=== PATIENT | female | born 1990 | race Caucasian/White ===

== ENCOUNTER 2019-11-19 11:38 | Inpatient (IN) | payer OTHER, SELFPAY ==
[~2019-11-19 11:38] MED LIST: Bupivacaine HCl 0.5%/Epinephrine 1:200,000/PF 30 ml Vial ONE; Bupivacaine/Epinephrine 0.25% 30 ML VIAL ONE; EPHEDRINE 25 MG/5 ML SYRINGE ONE
[2019-11-19] MEDS ORDERED: hydrALAZINE 20 MG/ML VIAL SLOW IVP PRN (11:43)
--- NOTE | 2019-11-19 12:01 | PDOC.FPROB ---
FMR OB H&P: HPI - History of Present Illness Chief Complaint: elevated BP and non reactive NST Indentification: 38.5 wga dated by LMP c/w 7.1 wk sono History of Present Illness: 28 y/o 38.5 wga dated by LMP c/w 7.1, with a pmhx of Bipolar 1 d/o, obesity, and NAFLD, presents to L&D from [facility] with elevated BP readings 150/99 -130/86. Pt reports taking BP's at home and ranging from 115-130/70-80's. reports good movements. Denies LOF, vag bleeding/discharge. states she has been having random mauricio aguirre and associated with pelvic pain. Denies abd pain in RUQ or anywhere else, OLSEN, or swelling. Pt admits to having lights in her vision X2 days ago that went away spontaneous and was associated with some LH with standing abruptly. Primary Care Physician: [facility] FMR OB H&P: Current - Care : 1 Para: 0 Gestational age: 38.5 Dating Criteria: LMP c/w 7.1 wk sono Course/Complications: obesity lithium use in 1T, hx of bipolar d/o elevated LFT's in - OB Labs Blood type: A RH: positive Antibody Screen: negative HIV: negative RPR: negative HepBsAg: negative Rubella: immune Gonorrhea: negative Chlamydia: negative 1 hour gtt: 130 A1c: 5.1% GBS: positive - First Trimester Ultrasound First trimester: dating 7.1 wk sono FMR OB H&P: History - Past Medical History PMH: Bipolar 1 d/o Obestiy Thyroid disorder off meds for 1 year. - OB History OB History: pt plans to have open adoption of baby with family friends. Nonreactive NST today. Receiving weekly BPP: obesity, transaminitis, boarderline AMENA - Surgical History Sx History: wisdom teeth removal - Social History Social History: Pt agreed to adopt in open adoption. Denies current etoh, drug or tobacco use. Prior tobacco use about 10 cigs daily before Lives at home with parents - Family History Family History: noncontributory FMR OB H&P: ROS - Review of Systems General: denies: fever/chills, night sweats, fatigue Eyes: denies: eye pain, double vision, scotomas ENT: denies: nasal congestion, sore throat Cardiovascular: denies: chest pain, palpitation, edema Respiratory: denies: cough, congestion, shortness of breath Gastrointestinal: denies: abdominal pain, nausea, vomiting, diarrhea Genitourinary (Female): reports: contractions (random). denies: incontinence, dysuria, hematuria, vaginal discharge, vaginal pain, vaginal bleeding, vaginal mass/sore, vaginal pressure Musculoskeletal: denies: pain, stiffness, swelling Neurologic: denies: numbness, syncope, seizures, weakness Integumentary: denies: itching Endocrine: reports: polyuria. denies: polydipsia Hematologic/Lymphatic: denies: prolonged or excessive bleeding, enlarged lymph nodes Psychological: reports: other (manic episode about 1 year ago, Bipolar reported per pt as stable.) FMR OB H&P: Vital Signs - Maternal Vital signs: BP 134/89 HR 88 98% O2 sat 20 RR - Heart Tones Baseline: 135 Variability: moderate Acceleration: absent Deceleration: absent [place] contractions every: random, irregular FMR OB H&P: Physical Exam - Physical Exam General: NAD, awake, alert and oriented HEENT: normocephalic and atraumatic, PERRLA, EOMI, MMM, conjunctiva clear, no scleral icterus, grossly normal vision, grossly normal hearing Neck: supple, FROM, trachea midline, no JVD Chest: non-tender to palpation Breast: symmetric Heart: RRR, normal S1/S2, no murmurs/rubs/gallops, pulses present, no edema General: CTAB, no respiratory distress, good air movement, no rales/rhonchi, no wheezing, no retractions Abdomen: soft, gravid, non-tender, bowel sound present Musculoskeletal: normal gait and station, pulses present, FROM in all four extremities, no misalignment/asymmetry, no atrophy Neurological: sensation to pain,touch and proprioception grossly normal, DTR +2 , no clonus, no tremor, no focal deficit Skin: no rash, good tugor, capillary refill <2 seconds, no jaundice Lymphatic: no unusual bruising or bleeding, no purpura, no petechia Psychiatric: intact recent and remote memory, good judgement and insight, normal mood and affect FMR OB H&P: A/P - Problem List (1) Elevated BP without diagnosis of hypertension Current Visit: Yes Status: Acute Code(s): R03.0 - ELEVATED BLOOD-PRESSURE READING, W/O DIAGNOSIS OF HTN (2) Term Current Visit: Yes Status: Acute Code(s): Z34.90 - ENCNTR FOR SUPRVSN OF NORMAL , UNSP, UNSP TRIMESTER (3) Non-reactive NST (non-stress test) Current Visit: Yes Status: Acute Code(s): O28.8 - OTHER ABNORMAL FINDINGS ON SCREENING OF MOTHER (4) Bipolar 1 disorder Current Visit: Yes Status: Acute Code(s): F31.9 - BIPOLAR DISORDER, UNSPECIFIED (5) Obesity Current Visit: Yes Status: Acute Code(s): E66.9 - OBESITY, UNSPECIFIED Discussion: Date/Time: 11/19/19 1153 28 y/o @ 38.5 wks dated by LMP c/w 9.6 wk sono. Here today for non- reactive NST and elevated BP's in office 150/99. 1. sIUP @ 38.5 wks - NST ordered - nonreactive NST @ [facility] earlier today. - BPP ordered - TOCO And FHT monitoring. - FHT 135 baseline with mod variability, no accels present 2. Elevated BP's, Pre-E rule out - CBC, CMP, Urine pro/Cr ratio - BP Q15 min 3. GBS + 4. Hx of asthma 5. hx of transaminitis 2/2 NAFLD due to glucose intolerance and metabolic syndrome. - CMP ordered 6. Hx of thyroid disease - has been off meds for X1 year - TSH 1.54 7. Hx of Bipolar d/o - use of lithium in 1T This H&P was discussed with Dr. Frederick and Dr. Felton who agree with the above documentation and plan.
[2019-11-19 12:11] LABS: #Eosinphils 0.1 thou/uL (0.0-0.7); #Monocytes 0.6 thou/uL (0.11-0.59); #Neutrophils 6.7 thou/uL (1.40-6.50); %Basophils 0.4 % (0.0-1.0); %Eosinophils 1.4 % (0.0-10.0); %Lymphocytes 21.6 % (21.0-51.0); %Monocytes 5.9 % (0.0-10.0); %Neutrophils 70.7 % (42.0-75.0); Hemoglobin 13.7 g/dL (12.0-16.0); Mean Corpuscular HGB CONC 33.6 g/dL (32.0-36.0); Mean Corpuscular Hemoglobin 26.2 pg (27.0-31.0); Mean Corpuscular Volume 77.9 fL (78.0-98.0); Mean Platelet Volume 8.4 fL (7.4-10.4); Platelet Count 325 thou/uL (130-400); RBC Distribution Width 14.6 % (11.5-14.5); Red Blood Cell (RBC) Count 5.22 mill/uL (4.20-5.40); White Blood Cell (WBC) Count 9.4 thou/uL (4.8-10.8)
[2019-11-19 12:44] LABS: ALT (SGPT) 63 U/L (8-55); AST (SGOT) 26 U/L (5-34); Albumin 3.4 g/dL (3.5-5.0); Alkaline Phosphatase 269 U/L (40-110); Anion Gap 15 mmol/L (10-20); BUN (Urea Nitrogen) 8 mg/dL (7.0-18.7); Bilirubin, Total 0.5 mg/dL (0.2-1.2); Calc. Creatinine Clearance 0 mL/min (70-130); Calcium 10.3 mg/dL (7.8-10.44); Carbon Dioxide 20 mmol/L (22-29); Chloride 104 mmol/L (98-107); Estimated GFR-MDRD Greater than 90; Glucose 104 mg/dL (70-105); Potassium 4.2 mmol/L (3.5-5.1); Protein, Total 7.4 g/dL (6.0-8.3); Sodium 135 mmol/L (136-145)
[2019-11-19] MEDS ORDERED: NS / Oxytocin 40 units/1000ml 1,000 ML IV PRN (13:16)
[2019-11-19] MEDS ORDERED: Butorphanol Tartrate 1 MG/ML VIAL SLOW IVP PRN (13:16)
[2019-11-19] MEDS ORDERED: Promethazine HCl 25 MG/ML VIAL IM PRN (13:16)
[2019-11-19] MEDS ORDERED: Ondansetron PF 4 MG/2 ML Vial IVP PRN (13:16)
[2019-11-19] MEDS ORDERED: Lidocaine 1% (PF) 30 ML VIAL SC PRN (13:16)
[2019-11-19] MEDS ORDERED: Ibuprofen 800 MG TAB PO PRN (13:16)
[2019-11-19] MEDS ORDERED: NS w/ Oxytocin 10 units 500 ML IV SCH (13:30)
[2019-11-19] MEDS ORDERED: Penicillin G Potassium 5 MILL.UNITS in Sodium Chloride 0.9% 100 ML IVPB SCH (13:30)
--- NOTE | 2019-11-19 13:44 | PDOC.BPN ---
- Brief Progress Note BPP 6/10 Non-reactive strip. FHT baseline 135 with mod variability. No 15X15 acels present on monitoring so far. Oiligohydramnios on sono AMENA: 0 admitting for medical IOL for oligohydramnios Amnisure ordered. Will determine pit vs cytotec after determining if ruptured or not, and BOOKER score. Plan discussed with Dr. Frederick and Dr. Felton who are in agreement with above plan.
[2019-11-19 13:57] LABS: Creatinine, Urine 22.66 mg/dL (47-110); Protein, Urine Random Quant Less than 10 mg/dL (1-14)
[2019-11-19] MEDS: Lactated Ringer's 1,000 ML IV SCH (14:00)
--- NOTE | 2019-11-19 14:10 | PDOC.BPN ---
- Brief Progress Note Correction: 38.5 weeks dated by LMP c/w 9.6 wk robert
[2019-11-19 14:11] VITALS: BMI 45.7
[2019-11-19 14:11] LABS: Hemoglobin 13.3 g/dL (12.0-16.0); Mean Corpuscular HGB CONC 33.7 g/dL (32.0-36.0); Mean Corpuscular Hemoglobin 26.1 pg (27.0-31.0); Mean Corpuscular Volume 77.5 fL (78.0-98.0); Mean Platelet Volume 8.4 fL (7.4-10.4); Platelet Count 313 thou/uL (130-400); RBC Distribution Width 14.5 % (11.5-14.5); Red Blood Cell (RBC) Count 5.11 mill/uL (4.20-5.40); White Blood Cell (WBC) Count 9.9 thou/uL (4.8-10.8)
[2019-11-19 14:17] LABS: Amnisure Internal Control QC ACCEPTABLE (ACCEPTABLE); Amnisure Test No Membranes Rupture (No Rupture)
[2019-11-19 14:18] LABS: HBSAg Index 0.13 S/CO (0-0.99); Hep B Surf Ag Non-Reactive S/CO (NonReactive); Syphilis Antibody Nonreactive (Nonreactive); Syphilis Antibody Index 0.02 S/CO (<1.00 Non-Reactive)
[2019-11-19] MEDS: Misoprostol 100 MCG TAB VAG SCH ×3 (14:56→21:45)
[2019-11-19] MEDS ORDERED: Lactated Ringer's 1,000 ML IV SCH (15:00)
--- NOTE | 2019-11-19 15:01 | PDOC.LDPN ---
Labor & Delivery Progress Note - Subjective Subjective: comfortable, vaginal pressure, no concerns - Objective Vital signs reviewed and normal: yes General: NAD, resting, breathing through contractions Uterine fundus: non tender SVE: Dr. Martinez @ 1450, /-2 Dilation: 1 Effacement: 50% Station: -2 FHT: category 1 (mod variability, no decels, acels 10X10 present ), variability present Nina contractions every: 3-5 min Other exam findings: amnisure negative - Assessment (1) Elevated BP without diagnosis of hypertension Code(s): R03.0 - ELEVATED BLOOD-PRESSURE READING, W/O DIAGNOSIS OF HTN Current Visit: Yes Status: Acute (2) Term Code(s): Z34.90 - ENCNTR FOR SUPRVSN OF NORMAL , UNSP, UNSP TRIMESTER Current Visit: Yes Status: Acute (3) Non-reactive NST (non-stress test) Code(s): O28.8 - OTHER ABNORMAL FINDINGS ON SCREENING OF MOTHER Current Visit: Yes Status: Acute (4) Bipolar 1 disorder Code(s): F31.9 - BIPOLAR DISORDER, UNSPECIFIED Current Visit: Yes Status: Acute (5) Obesity Code(s): E66.9 - OBESITY, UNSPECIFIED Current Visit: Yes Status: Acute Plan: continue plan of care -: 28 y/o @ 38.5 wks dated by LMP c/w 9.6 wk sono. Here today for non- reactive NST and elevated BP's in office 150/99. 1. sIUP @ 38.5 wks, medical induction for Oligohydramnios - nonreactive NST @ [facility] earlier today. - BPP 6/10. AMENA 0, nonreactive NST. - continuous TOCO And FHT monitoring. - FHT 135 baseline with mod variability, 10X10 acels present, with a 15X15 on strip since admission. No decels. Gave 1 liter LR bolus. - SVE @ 1450: /-2, cytotec placed. BOOKER score 5. Ctx 3-5 min. FHT's reassuring and starting to show accelerations. - Recheck SVE in 3 hours. 2. Oligohydramnios - AMENA 0. Amnisure negative. No leaking of fluids or suspicion of ROM per H&P. - pt had mBPP on Saturday this week and had borderline AMENA, receiving repeat BPP' s. 3. Elevated BP's, Pre-E rule out - CBC, CMP, Urine pro/Cr ratio - BP Q15 min 4. GBS + - PCN prophylaxis 5. Hx of asthma 6. hx of transaminitis 2/2 NAFLD due to glucose intolerance and metabolic syndrome. - AST and ALT improved since previous labs. 7. Hx of thyroid disease - has been off meds for X1 year - TSH 1.54 8. Hx of Bipolar d/o - use of lithium in 1T Plan discussed with Dr. Ferderick and Dr. Felton, who are in agreement with the above plan.
--- NOTE | 2019-11-19 15:10 | ULT ---
BIOPHYSICAL PROFILE: 11/19/19 INDICATIONS: testing. movement: Score 2 tone: Score 2 breathing: Score 2 Amniotic fluid volume: Score 0 Total score: 6/8 AMENA is recorded at 0. Presentation: Vertex. Placenta: Anterior. heart rate: 132 beats per minute. IMPRESSION: 1. Biophysical profile of 6. 2. Severe oligohydramnios. POS: AGW
--- NOTE | 2019-11-19 19:23 | PDOC.LDPN ---
Labor & Delivery Progress Note - Subjective Subjective: comfortable - Objective Vital signs reviewed and normal: yes General: NAD, resting SVE: 2/50/-2 Dilation: 2 Effacement: 50% Station: -2 FHT: category 1 [place] contractions every: Occasional - Assessment (1) Term Code(s): Z34.90 - ENCNTR FOR SUPRVSN OF NORMAL , UNSP, UNSP TRIMESTER Current Visit: Yes Status: Acute -: 28 y/o @ 38.5 wks dated by LMP c/w 9.6 wk sono. Here today for non- reactive NST and elevated BP's in office 150/99. 1. sIUP @ 38.5 wks, medical induction for Oligohydramnios Nonreactive NST @ [facility] earlier today. * BPP 11/17. AMENA 0, nonreactive NST. * Continuous TOCO And FHT monitoring. * FHT 135 baseline with mod variability, 10X10 acels present, with a 15X15 on strip since admission. No decels. S/p 1 liter LR bolus. * SVE * 11/18 1450: 1/50/-2, cytotec placed. BOOKER score 5. Ctx 3-5 min. FHT's reassuring and starting to show accelerations. * 11/18 1830: 2/50/-2, Cytotec placed * Recheck SVE in 3 hours. 2. Oligohydramnios AMENA 0. Amnisure negative. No leaking of fluids or suspicion of ROM per H&P. * Pt had mBPP on Saturday this week and had borderline AMENA, receiving repeat BPP' s. 3. Elevated BP's, Pre-E rule out * P/C Neg * CBC shows normal plts, CMP shows elevated ALT, AST normal * BP Q15 min 4. GBS + * PCN prophylaxis 5. Hx of asthma 6. hx of transaminitis 2/2 NAFLD due to glucose intolerance and metabolic syndrome. * AST and ALT improved since previous labs. 7. Hx of thyroid disease Has been off meds for X1 year * TSH 1.54 8. Hx of Bipolar d/o Use of lithium in 1T Plan discussed with Dr. Frederick and Dr. Marroquin, who are in agreement with the above plan.
--- NOTE | 2019-11-20 01:46 | PDOC.LDPN ---
Labor & Delivery Progress Note - Subjective Subjective: comfortable, other (reports some increased cramping pain) - Objective Vital signs reviewed and normal: yes General: NAD, resting Uterine fundus: non tender SVE: 22:30 Dilation: 1.5 Effacement: 75% Station: -2 FHT: category 1, variability present G[place] contractions every: 3-4 minutes - Assessment (1) Bipolar 1 disorder Code(s): F31.9 - BIPOLAR DISORDER, UNSPECIFIED Current Visit: Yes Status: Acute (2) Elevated BP without diagnosis of hypertension Code(s): R03.0 - ELEVATED BLOOD-PRESSURE READING, W/O DIAGNOSIS OF HTN Current Visit: Yes Status: Acute (3) Obesity Code(s): E66.9 - OBESITY, UNSPECIFIED Current Visit: Yes Status: Acute (4) Term Code(s): Z34.90 - ENCNTR FOR SUPRVSN OF NORMAL , UNSP, UNSP TRIMESTER Current Visit: Yes Status: Acute Plan: continue plan of care, labor augmentation -: 28 y/o @ 38.5 wks dated by LMP c/w 9.6 wk sono. Here today for non- reactive NST and elevated BP's in office 150/99. 1. sIUP @ 38.5 wks, medical induction for Oligohydramnios Nonreactive NST @ [facility] earlier today. * BPP 11/17. AMENA 0, nonreactive NST. * Continuous TOCO And FHT monitoring. * FHT 135 baseline with mod variability, 10X10 acels present, with a 15X15 on strip since admission. No decels. S/p 1 liter LR bolus. * SVE * 11/18 1450: 1/50/-2, cytotec placed. BOOKER score 5. Ctx 3-5 min. FHT's reassuring and starting to show accelerations. * 11/18 1830: 2/50/-2, Cytotec placed * 11/18 22:30 1.5-2/50/-2 cytotec #3 placed * Recheck SVE in 3-4 hours. 2. Oligohydramnios AMEAN 0. Amnisure negative. No leaking of fluids or suspicion of ROM per H&P. * Pt had mBPP on Saturday this week and had borderline AMENA, receiving repeat BPP' s. 3. Elevated BP's, Pre-E rule out * P/C Neg * CBC shows normal plts, CMP shows elevated ALT, AST normal * BP Q15 min 4. GBS + * PCN prophylaxis 5. Hx of asthma 6. hx of transaminitis 2/2 NAFLD due to glucose intolerance and metabolic syndrome. * AST and ALT improved since previous labs. 7. Hx of thyroid disease Has been off meds for X1 year * TSH 1.54 8. Hx of Bipolar d/o Use of lithium in 1T. Not currently on any medication. Reports mood as stable.
[2019-11-20] MEDS: Misoprostol 100 MCG TAB VAG SCH ×2 (02:10→22:49)
--- NOTE | 2019-11-20 07:12 | PDOC.LDPN ---
Labor & Delivery Progress Note - Objective Abnormal vital signs: severe range BP @ approx 1630 on 11/18. No severe overngiht , elevated 140's General: NAD Uterine fundus: non tender SVE: Dr. Martinez @ 0715, /-1 Dilation: 3 Effacement: 50% Station: -1 FHT: category 1 (140, mod variability, acels present. No decels observed overnight strip reviewed. ), variability present [place] contractions every: q4-3 min - Assessment (1) Elevated BP without diagnosis of hypertension Code(s): R03.0 - ELEVATED BLOOD-PRESSURE READING, W/O DIAGNOSIS OF HTN Current Visit: Yes Status: Acute (2) Term Code(s): Z34.90 - ENCNTR FOR SUPRVSN OF NORMAL , UNSP, UNSP TRIMESTER Current Visit: Yes Status: Acute (3) Non-reactive NST (non-stress test) Code(s): O28.8 - OTHER ABNORMAL FINDINGS ON SCREENING OF MOTHER Current Visit: Yes Status: Acute (4) Bipolar 1 disorder Code(s): F31.9 - BIPOLAR DISORDER, UNSPECIFIED Current Visit: Yes Status: Acute (5) Obesity Code(s): E66.9 - OBESITY, UNSPECIFIED Current Visit: Yes Status: Acute Plan: pitocin for augmentation -: 28 y/o @ 38.6 wks dated by LMP c/w 9.6 wk sono. Medical IOL for oligohydramnios 1. sIUP @ 38.6 wks, medical induction for Oligohydramnios Nonreactive NST @ [facility]. * BPP 11/17. AMENA 0, nonreactive NST. * Continuous TOCO And FHT monitoring. * FHT 140 baseline with mod variability, with a 15X15 acels present. No decels. Cat 1 strip * ctx q4-3min * SVE * 11/18 1450: 1/50/-2, cytotec placed. BOOKER score 5. Ctx 3-5 min. FHT's reassuring and starting to show accelerations. * 11/18 1830: 2/50/-2, Cytotec placed * 11/18 22:30 1.5-250/-2 cytotec #3 placed * 11/19 0715 3/50/-1, pit started. GBS ppx started. * Recheck SVE in 2-3 hours. 2. Oligohydramnios AMENA 0. Amnisure negative. No leaking of fluids or suspicion of ROM per H&P. * Pt had mBPP on Saturday this week and had borderline AMENA, receiving repeat BPP' s. 3. Elevated BP's, Pre-E rule out * P/C Neg * CBC shows normal plts, CMP shows elevated ALT, AST normal * BP Q15 min 4. GBS + * PCN prophylaxis 5. Hx of asthma 6. hx of transaminitis 2/2 NAFLD due to glucose intolerance and metabolic syndrome. * AST and ALT improved since previous labs. 7. Hx of thyroid disease Has been off meds for X1 year * TSH 1.54 8. Hx of Bipolar d/o Use of lithium in 1T. Not currently on any medication. Reports mood as stable. Dispo: starting pitocin. Starting GBS ppx.
[2019-11-20] MEDS: Penicillin G 2.5 MILL.units 2.5 MILL.UNITS in Premix Bag 1 BAG IVPB SCH ×4 (11:42→22:48)
[2019-11-20] MEDS: Lactated Ringer's 1,000 ML IV SCH ×3 (11:42→22:50)
--- NOTE | 2019-11-20 12:17 | PDOC.LDPN ---
Labor & Delivery Progress Note - Subjective Subjective: comfortable, painful contractions - Objective Vital signs reviewed and normal: yes General: NAD, resting, breathing through contractions Uterine fundus: non tender SVE: Dr. Matrinez @ 1210, /-1. Stretchy 3 Dilation: 3 Effacement: 75% Station: -1 [place] contractions every: q3min AROM: clear fluid (small amount with FSE placement) IUPC placed: yes FSE placed: yes - Assessment (1) Elevated BP without diagnosis of hypertension Code(s): R03.0 - ELEVATED BLOOD-PRESSURE READING, W/O DIAGNOSIS OF HTN Current Visit: Yes Status: Acute (2) Term Code(s): Z34.90 - ENCNTR FOR SUPRVSN OF NORMAL , UNSP, UNSP TRIMESTER Current Visit: Yes Status: Acute (3) Non-reactive NST (non-stress test) Code(s): O28.8 - OTHER ABNORMAL FINDINGS ON SCREENING OF MOTHER Current Visit: Yes Status: Acute (4) Bipolar 1 disorder Code(s): F31.9 - BIPOLAR DISORDER, UNSPECIFIED Current Visit: Yes Status: Acute (5) Obesity Code(s): E66.9 - OBESITY, UNSPECIFIED Current Visit: Yes Status: Acute Plan: continue plan of care, other (Faculty: Case and progress reviewed. Now AROM with IUPC. HX Sneads in first trimester and has seen MFM antepartum. Plan : continue Pitocin) -: 28 y/o @ 38.6 wks dated by LMP c/w 9.6 wk sono. Medical IOL for oligohydramnios 1. sIUP @ 38.6 wks, medical induction for Oligohydramnios Nonreactive NST @ [facility]. * BPP 11/17. AMENA 0, nonreactive NST. * Continuous TOCO And FHT monitoring. * FHT 140 baseline with mod variability, with acels present. few spaced out variables over the morning. Cat 1 strip. There have been periods of time where there was not a good read on fht's with external monitors. Placed FSE @ 1210. * ctx q3min * SVE * 11/18 1450: 150/-2, cytotec placed. BOOKER score 5. Ctx 3-5 min. FHT's reassuring and starting to show accelerations. * 11/18 1830: 50/-2, Cytotec placed * 11/18 22:30 1.5-50/-2 cytotec #3 placed * 11/19 0715 /1, pit started. GBS ppx started. * 11/19 1210 3/-1, pt @ 8, FSE placed, small amount of clear fluid AROM, and IUPC placed. * Recheck SVE in 2-3 hours. 2. Oligohydramnios AMENA 0. Amnisure negative. No leaking of fluids or suspicion of ROM per H&P. * Pt had mBPP on Saturday this week and had borderline AMENA, receiving repeat BPP' s. 3. Elevated BP's, Pre-E rule out * P/C Neg * CBC shows normal plts, CMP shows elevated ALT, AST normal * BP Q15 min 4. GBS + * PCN prophylaxis 5. Hx of asthma 6. hx of transaminitis 2/2 NAFLD due to glucose intolerance and metabolic syndrome. * AST and ALT improved since previous labs. 7. Hx of thyroid disease Has been off meds for X1 year * TSH 1.54 8. Hx of Bipolar d/o Use of lithium in 1T. Not currently on any medication. Reports mood as stable. Dispo: Titrate pit to MVU 200. continue GBS ppx.
[2019-11-20] MEDS ORDERED: Fentanyl 4 mcg/Bup 0.1% Cadd 100 ML ONE (13:21)
[2019-11-20] MEDS ORDERED: Bicitra 30 ML UDCUP ONE (16:24)
--- NOTE | 2019-11-20 16:28 | PDOC.BPN ---
- Brief Progress Note 16:22 on 11/20/2019 Patient with recurrent late decelerations. Contractions not regular. SVE 5/100/ 0. Patient not in active labor, appears to be remote from delivery with persistent late decelerations. Not tolerating pitocin. Unable to augment labor further. Patient presented with oligohydramnios suggesting these late recurrent decelerations are related to uteroplacental insufficiency. Discussed options with patient. She is agreeable to pLTCS for NRFHT's. Betsy Hillman, DO PGY-3
--- NOTE | 2019-11-20 16:32 | PDOC.EVN ---
Event Note - Event Note Event Note: PREOP CS NOTE I have seen the patient at bedside and discussed need for CS. I have annotated in the comments section of QS when at bedside. Pitocin is now off. DX Persistent Cat 2 FHTS (variables) with mod variability. No response to change in position and boluses. HX oligo without SROM so may also be a component of uteroplacental insufficiency as lates were seen episodically before. Anesthesia called and enroute to L&D
--- NOTE | 2019-11-20 16:34 | PDOC.EVN ---
Event Note - Event Note Event Note: over 45: consider lovenox postop
[2019-11-20] MEDS ORDERED: MORPHINE 5 MG/10 ML PF VIAL ONE (16:38)
[2019-11-20] MEDS ORDERED: Fentanyl 100 MCG/2 ML VIAL ONE (16:38)
[2019-11-20] MEDS ORDERED: PHENYLEPHRINE-NS 100 MCG/ML 10 ML SYRINGE ONE (16:39)
[2019-11-20] MEDS ORDERED: Dexamethasone 4 mg/ml Vial ONE (16:39)
[2019-11-20] MEDS ORDERED: Ondansetron PF 4 MG/2 ML Vial ONE (16:39)
[2019-11-20] MEDS ORDERED: Oxytocin 10 UNITS/ML VIAL ONE (16:39)
[2019-11-20] MEDS ORDERED: Ketorolac Tromethamine 30 MG/ML VIAL ONE (16:39)
[2019-11-20] MEDS ORDERED: EPHEDRINE 25 MG/5 ML SYRINGE ONE (16:39)
[2019-11-20] MEDS ORDERED: Azithromycin 500 MG VIAL ONE (16:40)
[2019-11-20] MEDS ORDERED: CEFAZOLIN 2 GM in Premix Bag 1 BAG IVPB SCH (16:45)
[2019-11-20] MEDS ORDERED: HYDROmorphone 2 MG/ML VIAL SLOW IVP PRN (16:45)
[2019-11-20] MEDS ORDERED: diphenhydrAMINE 50 MG/ML VIAL IVP PRN (16:45)
[2019-11-20] MEDS ORDERED: Meperidine HCl/PF 25 MG/ML VIAL SLOW IVP PRN (16:45)
[2019-11-20] MEDS ORDERED: Naloxone HCl 0.4 mg/ml Vial IVP PRN ×2 (16:45)
[2019-11-20] MEDS ORDERED: Ketorolac Tromethamine 30 MG/ML VIAL IVP PRN (16:45)
[2019-11-20] MEDS ORDERED: Azithromycin 500 MG in Sodium Chloride 0.9% 250 ML 250 ML IVPB SCH (16:45)
[2019-11-20] MEDS ORDERED: Naloxone HCl 0.4 mg/ml Vial IV PRN (16:45)
[2019-11-20] MEDS ORDERED: CEFAZOLIN 3 GM in Premix Bag 1 BAG IVPB SCH (16:45)
[2019-11-20] MEDS ORDERED: L&D-Morphine 4 MG/ML VIAL SLOW IVP PRN (16:45)
[2019-11-20] MEDS ORDERED: Ketorolac Tromethamine 30 MG/ML VIAL IVP SCH (16:45)
[2019-11-20] MEDS ORDERED: Promethazine HCl 25 MG/ML VIAL IM PRN (16:45)
[2019-11-20] MEDS ORDERED: Promethazine HCl 25 MG SUPP PR PRN (16:45)
[2019-11-20] MEDS ORDERED: Bicitra 30 ML UDCUP PO SCH (16:45)
[2019-11-20] MEDS ORDERED: Communication Order-Pharmacy FS SCH (16:45)
[2019-11-20] MEDS ORDERED: Midazolam HCl 2 mg/2 ml Vial ONE (17:08)
[2019-11-20 17:19] LABS: Actual Bicarbonate (HCO3v) 24 mEq/L (22-28); Base Excess -4.3 mEq/L (-2.0 to +3.0); pH (Cord, venous) 7.25 (7.32-7.43)
[2019-11-20] MEDS ORDERED: Misoprostol 200 MCG TAB PR PRN (18:21)
[2019-11-20] MEDS ORDERED: diphenhydrAMINE 25 MG CAP PO PRN (18:21)
[2019-11-20] MEDS ORDERED: Lanolin Ointment 7 GM TUBE TOP PRN (18:21)
[2019-11-20] MEDS ORDERED: Simethicone Chewable 80 MG TAB PO PRN (18:21)
[2019-11-20] MEDS ORDERED: Methylergonovine 0.2 MG/ML VIAL IM PRN (18:21)
[2019-11-20] MEDS ORDERED: Bisacodyl 10 MG SUPP PR PRN (18:21)
[2019-11-20] MEDS ORDERED: Adacel (T-DAP) 0.5 ML SYRINGE IM ONE (18:21)
[2019-11-20] MEDS ORDERED: Methylergonovine 0.2 MG TAB PO PRN (18:21)
[2019-11-20] MEDS ORDERED: Acetaminophen 500 MG TAB PO PRN (18:21)
--- NOTE | 2019-11-20 18:57 | PDOC.EVN ---
Event Note - Event Note Event Note: No arterial gas obtained due to poor sample in cord. Only venous value in chart. Apgars were wnl for child.
--- NOTE | 2019-11-20 19:12 | PDOC.OPDEL ---
OB Operative/Delivery Note Delivery Dr/Surgeon: Jose/Cara/Higinio Pre-Delivery Diagnosis: active labor, medically indicated induction, non- reassuring tracing Procedure/Post Delivery Dx: primary low transverse CS Weeks gestation: 38 (38.6) Anesthesia: spinal - Findings A Sex: male - 1 min: 8 - 5 min: 9 - Additional Findings/Plan Placenta delivered: spontaneous findings: low transverse hysterotomy with extension (3cm right inferior ) Estimated blood loss: 565 Compilations/Other Findings: Date of Procedure: 11/20/19 Resident: Yanira/Cara Attending: Hiignio Procedure: Primary low transverse caesarean section Pre-operative Diagnosis: 1. Term intrauterine 2. Oligohydramnios 3. Non-reassuring FHT 4. GBS + 5. NAFLD 6. History of Bipolar Disorder 7. History of Thyroid disease 8. History of Asthma Postoperative Diagnosis: 1. S/P Primary low transverse c/s 2. same as above Anesthesia: spinal Indications: Patient is a 28yo @ 38.6wk gestation who presents for primary low transverse caesarean section for non-reassuring heart tones. Procedure: AFter risks, benefits, and alternatives were explained to the patient , she gave information consent. Pre-operative antibiotics included Ancef 2g and Azithromycin 500mg. The patient was taken to the operating room and spinal anesthesia was initiated. She was placed in the supine position with a left tilt and prepped and draped in the usual and sterile fashion. A Pfannenstiel incision was made with a scalpel and carried down to the level of the fascia which was sharply nicked. The fascial cut was extended bilaterally with Jett scissors. The inferior and superior edges of the cut fascial edges were elevated with Kocker clamps and the underlying rectus muscles were bluntly dissected. The recti were divided digitally and retracted manually. The peritoneum was entered bluntly and retracted manually. The Mihai-O was then placed and overlying bowel was gently displaced and free of the device. A low transverse score was made with the scalpel and the uterus was entered in the midline bluntly. The hysterotomy was extended manually. The infant was vertex, OP position and was delivered by fundal pressure @ 1702. Mouth and nares were bulb suctioned. Baby's stool was noted at time of delivery. Cord clamped and cut after delayed cord clamping. A grossly normal male infant was handed to waiting nurse. A cord segment for cord gas was obtained however was inadequate for sample. Cord blood was obtained. Placenta was then delivered and found to be intact with 3 vessel cord and sent for pathology. The uterus was inspected and a 3cm right lateral extension of the uterine incision was noted. The uterine incision extension was closed with a running, locking #1 Monocryl with hemostasis visualized. The uterine incision was then closed with a running, locking #1 Monocryl. Following this, hemostasis was noted. The Mihai-O was then removed. Initial count was correct. The abdomen was then irrigated with saline and suctioned free of clots. The hysterotomy was again noted to be to hemostatic. The peritoneum and rectus were closed with a running, non-locking, 2 -0 chromic suture. The fascia was then closed with a running, non-locking #0 PDS suture. The subcutaneous tissue was irrigated and there were no bleeders. The subcutaneous tissue was then closed with a running, non-locking 2-0 plain gut suture. The skin was then closed with a running, subq 4-0 plain suture and dermabond. All counts were correct. The patient tolerated the procedure well and was taken to the recovery room in stable condition. QBL: 565 Complications: None Specimens: Cord blood, placenta Findings: Grossly normal male with Apgars 8/9. Grossly normal placenta, sent for pathology. Drains: Moreira to gravity draining clear urine Post delivery plan: routine recovery
[2019-11-21] MEDS: Lactated Ringer's 1,000 ML IV SCH (02:03)
[2019-11-21] MEDS ORDERED: Butorphanol Tartrate 1 MG/ML VIAL SLOW IVP PRN (04:45)
[2019-11-21] MEDS ORDERED: HYDROcodone/Acetaminophen 5/325 mg Tablet PO PRN (04:45)
[2019-11-21] MEDS ORDERED: Enoxaparin Sodium 40 MG/0.4 ML SYRINGE SC SCH (06:00)
--- NOTE | 2019-11-21 06:42 | PDOC.PP ---
Post Progress Note Post Day #: 1 Subjective: Pt doing well. Reports pain well controlled at this time. Denies any fever or chills. Denies any chest pain or SOB. Denies any leg swelling. Reports had one pad change. Did not have concerns with amount of lochia. Pt ate some pudding overnight and tolerated PO intake tolerated: yes Flatus: yes Ambulation: yes Vital Signs (12 hours) Temp Pulse Resp BP Pulse Ox 11/21/19 04:19 98.8 F 70 18 107/60 97 11/21/19 00:05 98.4 F 95 12 136/86 95 11/20/19 22:40 60 18 134/84 95 11/20/19 22:10 64 16 131/80 96 11/20/19 21:40 57 L 18 128/73 95 11/20/19 21:10 98.8 F 60 17 141/78 H 96 Weight Weight 113.398 kg - Physical Examination General: NAD Cardiovascular: no m/r/g, RRR Respiratory: clear to auscultation bilaterally, non-labored breathing Abdominal: + bowel sounds, lochia (reports about the same as normal period), no distention, appropriately TTP Fundus firm & at: umbilicus Extremities: negative homans (B) Skin: CS incision dry & intact (Dressed. No redness or swelling noted) Neurological: no gross focal deficits Psychiatric: A&Ox3, normal affect Result Diagrams: 11/19/19 14:00 11/19/19 12:01 Additional Labs: Post Labs Blood Type O POSITIVE 11/19/19 14:14 Hep Bs Antigen Non-Reactive S/CO (NonReactive) 11/19/19 12:01 (1) Bipolar 1 disorder Code(s): F31.9 - BIPOLAR DISORDER, UNSPECIFIED Status: Acute (2) Elevated BP without diagnosis of hypertension Code(s): R03.0 - ELEVATED BLOOD-PRESSURE READING, W/O DIAGNOSIS OF HTN Status : Acute (3) Obesity Code(s): E66.9 - OBESITY, UNSPECIFIED Status: Acute (4) Term Code(s): Z34.90 - ENCNTR FOR SUPRVSN OF NORMAL , UNSP, UNSP TRIMESTER Status: Acute - Assessment/Plan 28 y/o @ 38.6 wks dated by LMP c/w 9.6 delivered TAGA on 11/19 via primary LT[facility] #Post OP day #1 - Routine post op care -Pain well controlled. Tylenol and Ibuprofen brenton w/ norco for breakthrough -- consulted #Elevated BP's, Pre-E rule out - CBC, CMP, Urine pro/Cr ratio - BP Q15 min #GBS + -Recieved pre-op abx and tx during labor # Hx of asthma # hx of transaminitis 2/2 NAFLD due to glucose intolerance and metabolic syndrome. - ALT mildly elevated. AST normal #Hx of thyroid disease - has been off meds for X1 year - TSH 1.54 #Hx of Bipolar d/o - use of lithium in 1T
--- NOTE | 2019-11-21 06:47 | OP ---
FACULTY OP NOTE: DATE OF PROCEDURE: 11/20/2019 PREOPERATIVE DIAGNOSES: 1. Non-reassuring heart tones at 5 cm. 2. Baby for adoption. 3. Baby had 1st trimester exposure to lithium. POSTOPERATIVE DIAGNOSES: 1. Non-reassuring heart tones at 5 cm. 2. Baby for adoption. 3. Baby had 1st trimester exposure to lithium. 4. Status post primary low-transverse with right inferior extension ( 3 cm). PROCEDURE: Primary low transverse (with right inferior extension, 3 cm). CO-SURGEON: Patrick Marroquin MD. TELEPHONE ANSWERER: Jarrod Hutson MD. STAFF/ATTENDING SCRUBBED INTO SURGERY: Christo Sylvester MD. ANESTHESIA: Labor epidural. ANTIBIOTICS: Ancef 2 g and Zithromax 500 g. COMPLICATIONS: Right 3 cm inferior hysterotomy extension at the angle of the hysterotomy, this likely was due to the baby's OP position. This was closed in an independent closure. FINDINGS: 1. Baby was vigorous, male, Apgars 8 and 9 verbally, but not formal. 2. NICU Team present for delivery. 3. Normal placenta by appearance. PATHOLOGY: Placenta. Lab specimens ordered is a cord blood gas (arterial). COMPLICATION: Inferior extension, isolated. COUNTS: Correct. DISPOSITION: To recovery room in good and stable condition. DESCRIPTION OF PROCEDURE: This is Dr. Sylvester, doing a faculty operative dictation. The indication was non-reassuring heart tones remote from delivery. I was present and scrubbed in for the and assisted with portions of the surgery including hysterotomy repair and extension closure. Dr. Nguyen performed the extraction during the . I was present from initiation of the surgery until fascial closure. Dr. Nguyen will close the skin and subcutaneous tissue with suture. PLAN: I have discussed postoperative Lovenox at 12 hours due to the patient's BMI. Please see the full dictation by the resident team. Job ID: [id number] [facility]
[2019-11-21 06:53] LABS: Mean Corpuscular HGB CONC 31.6 g/dL (32.0-36.0); Mean Corpuscular Hemoglobin 24.7 pg (27.0-31.0); Mean Corpuscular Volume 78.3 fL (78.0-98.0); Mean Platelet Volume 8.2 fL (7.4-10.4); Platelet Count 239 thou/uL (130-400); RBC Distribution Width 14.3 % (11.5-14.5); Red Blood Cell (RBC) Count 4.03 mill/uL (4.20-5.40); White Blood Cell (WBC) Count 14.1 thou/uL (4.8-10.8)
[2019-11-21] MEDS: Prenatal Vitamin 1 TAB PO SCH (08:40)
[2019-11-21] MEDS: HYDROcodone/Acetaminophen 5/325 mg Tablet PO PRN ×2 (12:06→17:08)
[2019-11-21] MEDS: Ibuprofen 800 MG TAB PO SCH (21:56)
[2019-11-22] MEDS: HYDROcodone/Acetaminophen 5/325 mg Tablet PO PRN ×4 (03:55→23:54)
[2019-11-22] MEDS: Ibuprofen 800 MG TAB PO SCH ×3 (05:43→22:12)
--- NOTE | 2019-11-22 07:37 | PDOC.PP ---
Post Progress Note Post Day #: 2 Subjective: Doing well this morning, ambulating without difficultly but states might have "over done it" yesterday and she was very tired last night. Voiding without difficulty, passing flatus, no BM yet. Tolerating PO and very eager for breakfast. Lochia minimal. No CP, SOB, vision changes. Pain controlled with motrin and prn [place]. going well. Baby's adoptive mom is at bedside and supportive. Patient would like to stay one more night but ensure pain is well-controlled prior to discharge home. PO intake tolerated: yes Flatus: yes Ambulation: yes Vital Signs (12 hours) Temp Pulse Resp BP Pulse Ox 11/22/19 03:50 98.7 F 85 18 116/57 L 97 11/22/19 00:48 98.7 F 77 18 126/78 97 11/21/19 20:10 98.0 F 18 L 18 125/63 96 Weight Weight 113.398 kg - Physical Examination General: NAD Cardiovascular: no m/r/g, RRR Respiratory: clear to auscultation bilaterally, non-labored breathing Abdominal: + bowel sounds, no distention, appropriately TTP Fundus firm & at: below umbilicus Skin: CS incision dry & intact Psychiatric: A&Ox3, normal affect Result Diagrams: 11/21/19 06:39 11/19/19 12:01 Additional Labs: Post Labs Blood Type O POSITIVE 11/19/19 14:14 Hep Bs Antigen Non-Reactive S/CO (NonReactive) 11/19/19 12:01 (1) delivery delivered Code(s): O82 - ENCOUNTER FOR DELIVERY WITHOUT INDICATION Status: Acute - Assessment/Plan 28 y/o @ 38.6 wks dated by LMP c/w 9.6 delivered SHELBI M on 11/19 via primary [facility] #Post OP day #2 - Routine post op care - Pain well controlled. Tylenol and Ibuprofen brenton w/ norco for breakthrough - - consulted, going well - ambulating, passing flatus, voiding. - Would like to stay one additional night for pain control and arrangements #Elevated BP's - CBC, CMP, Urine pro/Cr ratio WNL - BP's all WNL #GBS + -Received pre-op abx and tx during labor # Hx of asthma # hx of transaminitis 2/2 NAFLD due to glucose intolerance and metabolic syndrome. - ALT mildly elevated. AST normal #Hx of thyroid disease - has been off meds for X1 year - TSH 1.54 #Hx of Bipolar d/o - use of lithium in 1T PCP: BUNNY Marroquin Dispo: Cont routine PP care, anticipate discharge tomorrow. Addendum - Attending - Attending Attestation Date/Time: 11/22/19 2116 I personally evaluated the patient and discussed the management with Dr. Hutson. I agree with the History, Examination, Assessment and Plan documented above with any addition or exceptions noted below. Patient requesting to stay one more night. Anticipating d/c tomorrow.
[2019-11-22] MEDS: Enoxaparin Sodium 40 MG/0.4 ML SYRINGE SC SCH (08:11)
[2019-11-22] MEDS: Prenatal Vitamin 1 TAB PO SCH (08:12)
[2019-11-22 21:20] VITALS: TEMP 98.6
[2019-11-23] MEDS: Ibuprofen 800 MG TAB PO SCH (06:05)
--- NOTE | 2019-11-23 08:17 | PDOC.BPN ---
- Brief Progress Note POD 3 DR Marroquin has evaluated the patient. She is clera for DC, Baby for adoption Vitals reviewed
[2019-11-23 08:52] VITALS: BP 127/82
[2019-11-23] MEDS: Prenatal Vitamin 1 TAB PO SCH (10:33)
[2019-11-23] MEDS: Enoxaparin Sodium 40 MG/0.4 ML SYRINGE SC SCH (10:33)
[2019-11-23] MEDS: HYDROcodone/Acetaminophen 5/325 mg Tablet PO PRN (11:41)
--- NOTE | 2019-11-23 11:43 | PDOC.PP ---
Post Progress Note Post Day #: 3 PO intake tolerated: yes Flatus: yes Ambulation: yes Vital Signs (12 hours) Temp Pulse Resp BP Pulse Ox 11/23/19 08:00 98.6 F 94 16 127/82 97 Weight Weight 113.398 kg - Physical Examination General: NAD Cardiovascular: no m/r/g, RRR Respiratory: clear to auscultation bilaterally, non-labored breathing Abdominal: + bowel sounds, lochia (territory supervisor than normal period), no distention, appropriately TTP Extremities: negative homans (B) Skin: CS incision dry & intact, no rash Neurological: no gross focal deficits Psychiatric: A&Ox3, normal affect Result Diagrams: 11/21/19 06:39 11/19/19 12:01 Additional Labs: Post Labs Blood Type O POSITIVE 11/19/19 14:14 Hep Bs Antigen Non-Reactive S/CO (NonReactive) 11/19/19 12:01 (1) Bipolar 1 disorder Code(s): F31.9 - BIPOLAR DISORDER, UNSPECIFIED Status: Acute (2) Elevated BP without diagnosis of hypertension Code(s): R03.0 - ELEVATED BLOOD-PRESSURE READING, W/O DIAGNOSIS OF HTN Status : Acute (3) Obesity Code(s): E66.9 - OBESITY, UNSPECIFIED Status: Acute (4) Term Code(s): Z34.90 - ENCNTR FOR SUPRVSN OF NORMAL , UNSP, UNSP TRIMESTER Status: Acute - Assessment/Plan 28 y/o @ 38.6 wks dated by LMP c/w 9.6 delivered SHELBI George on 11/19 via primary [facility] #Post OP day #3 - Routine post op care - Pain well controlled. Tylenol and Ibuprofen brenton w/ norco for breakthrough - - consulted, going well - ambulating, passing flatus, voidnig normally -Pt to be d/c today #GBS + -Received pre-op abx and tx during labor # Hx of asthma # hx of transaminitis 2/2 NAFLD due to glucose intolerance and metabolic syndrome. - ALT mildly elevated. AST normal #Hx of thyroid disease - has been off meds for X1 year - TSH 1.54 #Hx of Bipolar d/o - use of lithium in 1T 28 y/o @ 38.6 wks dated by LMP c/w 9.6 delivered TAGA M on 11/19 via primary LTCS
== END 2019-11-23 13:05 | disposition home or self-care (01) | DRG 787 ==
LOC: L&D/OP 11:38 → L&D 19:59 → 3SE 11-20 21:58 → 3SW 11-22 18:51
PROVIDERS: ADMIT Obstetrics & Gynecology; ATTEND Obstetrics & Gynecology
PROC: 10D00Z1 Extraction of Products of Conception, Low, Open Approach (ICD-10-PCS; principal; 2019-11-20)
PROC: 10907ZC Drainage of Amniotic Fluid, Therapeutic from Products of Conception, Via Natural or Artificial Opening (ICD-10-PCS; 2019-11-20)
PROC: 3E033VJ Introduction of Other Hormone into Peripheral Vein, Percutaneous Approach (ICD-10-PCS; 2019-11-20)
PROC: 3E0P7VZ Introduction of Hormone into Female Reproductive, Via Natural or Artificial Opening (ICD-10-PCS; 2019-11-20)
DX: O41.03X0 Oligohydramnios, third trimester, not applicable or unspecified (principal); O26.62 Liver and biliary tract disorders in childbirth; O76 Abnormality in fetal heart rate and rhythm complicating labor and delivery; O99.344 Other mental disorders complicating childbirth; O99.214 Obesity complicating childbirth; O99.52 Diseases of the respiratory system complicating childbirth; O99.824 Streptococcus B carrier state complicating childbirth; O28.8 Other abnormal findings on antenatal screening of mother; E66.9 Obesity, unspecified; F31.9 Bipolar disorder, unspecified; K76.89 Other specified diseases of liver; J45.909 Unspecified asthma, uncomplicated; K75.81 Nonalcoholic steatohepatitis (NASH); O75.89 Other specified complications of labor and delivery; R03.0 Elevated blood-pressure reading, without diagnosis of hypertension; Z3A.38 38 weeks gestation of pregnancy; Z37.0 Single live birth
CPT/HCPCS: 36415; 51702; 76819; 80053; 82570; 82805; 84112; 84156; 85025; 85027; 86780; 86850; 86900; 86901; 87340; 88307; 99285; J0456; J0595; J0670; J0690; J1100; J1200; J1650; J1885; J2250; J2274; J2405; J2540; J2590; J3010; J3490; Q0163

== ENCOUNTER 2024-06-14 15:38 | Emergency (ER) | payer OTHER ==
[2024-06-14] MEDS ORDERED: hydrOXYzine Pamoate 25 mg Capsule ONE (17:51)
[2024-06-14 18:09] LABS: #Basophils 0.05 10x3/uL (0.0-0.2); %Basophils 0.4 % (0.0-1.0); %Eosinophils 1.5 % (0.0-10.0); %Lymphocytes 32.4 % (21.0-51.0); %Neutrophils 60.5 % (42.0-75.0); Hemoglobin 15.5 g/dL (12.0-16.0); Mean Corpuscular HGB CONC 33.7 g/dL (32.0-36.0); Mean Corpuscular Hemoglobin 27.5 pg (27.0-31.0); Mean Corpuscular Volume 81.7 fL (78.0-98.0); Mean Platelet Volume 9.1 fL (7.4-10.4); Platelet Count 344 10x3/uL (130-400); RBC Distribution Width 14.3 % (11.5-14.5); Red Blood Cell (RBC) Count 5.63 mill/uL (4.20-5.40)
[2024-06-14 18:21] LABS: BHCG - Serum Negative (NEGATIVE)
[2024-06-14 18:22] LABS: Pregs Control Background? CLEAR/WHITE (CLR/WHITE); Pregs Control Bar Appear? YES (CONTROL BAR)
[2024-06-14 18:26] LABS: ALT (SGPT) 42 U/L (8-55); AST (SGOT) 47 U/L (5-34); Albumin 4.4 g/dL (3.5-5.0); Alkaline Phosphatase 69 U/L (40-110); Anion Gap 14 mmol/L (10-20); BUN (Urea Nitrogen) 10 mg/dL (7.0-18.7); Bilirubin, Total 0.4 mg/dL (0.2-1.2); Calc. Creatinine Clearance 0 mL/min (70-130); Calcium 9.5 mg/dL (7.8-10.44); Carbon Dioxide 25 mmol/L (22-29); Chloride 103 mmol/L (98-107); Estimated GFR 103; Globulin 3.8 g/dL (2.4-3.5); Glucose 98 mg/dL (70-105); Lipase 9 U/L (8-78); Protein, Total 8.2 g/dL (6.0-8.3); Sodium 138 mmol/L (136-145)
[2024-06-14 18:32] LABS: Acetaminophen Less than 10 mcg/mL (Less than 10); Alcohol Less than 10.0 mg/dL (Less than 10); Salicylate Less than 8.0 mg/dL (Less than 8.0)
[2024-06-14 20:00] LABS: Bacteria/HPF None Seen HPF (None Seen); Bilirubin Negative (Negative); Blood, Urine Negative (Negative); CAUTI Indications for Culture Pelvic or flank pain; Clarity Clear (Clear); Glucose, Urine (Dipstick) Normal (Negative); Ketone, Urine Negative (Negative); Leukocyte Negative Leu/uL (Negative); Nitrite Negative (Negative); Protein, Urine (Dipstick) Negative (Neg-Trace); RBC/HPF 0-3 HPF (0-3); Specific Gravity, Urine 1.014 (1.002-1.036); Squamous Epithelial None Seen HPF (0-3); Urobilinogen Normal mg/dL (Less than 2); WBC/HPF 0-3 HPF (0-3); pH, Urine 6.5 (5.0-9.0)
[2024-06-14 20:13] LABS: Amphetamine Not Detected (NotDetected); Barbiturates Screen Not Detected (NotDetected); Benzodiazepine Screen Not Detected (NotDetected); Cocaine Metabolite Screen Not Detected (NotDetected); Methadone Not Detected (NotDetected); Methamphetamine Not Detected (NotDetected); Opiate Screen Not Detected (NotDetected); Oxycodone Screen Not Detected (NotDetected); Phencyclidine (PCP) Not Detected (NotDetected); THC/Cannabinoid Screen Not Detected (NotDetected); Tricyclic Screen Not Detected (NotDetected)
[2024-06-14 20:16] LABS: Urine Culture Reflex No No
== END 2024-06-15 01:25 | disposition home or self-care (01) ==
LOC: EEVIPCON 15:38 → ERS 15:38
DX: R10.11 Right upper quadrant pain (principal); R10.12 Left upper quadrant pain; F17.200 Nicotine dependence, unspecified, uncomplicated; F41.8 Other specified anxiety disorders
CPT/HCPCS: 36415; 74176; 80053; 80306; 80307; 81001; 82140; 82550; 83690; 84703; 85025; Q0177